=== PATIENT | female | born 1955 | race Caucasian/White ===

== ENCOUNTER 2017-07-28 14:01 | Emergency (ER) | payer BC ==
[~2017-07-28] VITALS: Ht 157.5 cm; Wt 81.8 kg
[2017-07-28 14:03] VITALS: BP 158/95
[2017-07-28] MEDS ORDERED: HYDROcodone/APAP 5/325 TABLET PO PRN (14:30)
[2017-07-28] MEDS ORDERED: HYDROcodone/APAP 5/325 TABLET ONE (14:51)
== END 2017-07-28 14:57 | disposition home or self-care (01) ==
LOC: ED 14:51
DX: S83.412A Sprain of medial collateral ligament of left knee, initial encounter (principal); G89.11 Acute pain due to trauma; X58.XXXA Exposure to other specified factors, initial encounter; Y93.89 Activity, other specified; Y92.89 Other specified places as the place of occurrence of the external cause; Y99.8 Other external cause status
CPT/HCPCS: 29505; 99284

== ENCOUNTER 2017-09-23 11:09 | Day surgery (SDC) | payer BC ==
[2017-09-21 11:11] VITALS: BP 107/68
[~2017-09-23] VITALS: Ht 154.9 cm; Wt 86.0 kg
[~2017-09-23 11:09] MED LIST: BIFI1CAP PO; BUPIVACAINE/PF 0.5% ONE; EPINEPHRINE 1 MG/ML, 1ML ONE; LIDOCAINE 1%, 50ML ONE; MULT-326 PO; MULT-672 PO
[2017-09-23] MEDS ORDERED: LACTATED RINGERS 1,000 ML IV SCH (12:26)
[2017-09-23] MEDS ORDERED: LIDOCAINE 1%, 2ML ONE (12:30)
[2017-09-23] MEDS ORDERED: LIDOCAINE 1%, 2ML SQ PRN (12:30)
[2017-09-23] MEDS ORDERED: MIDAZOLAM 1 MG/ML, 2ML ONE (12:55)
[2017-09-23] MEDS ORDERED: PROPOFOL 10 MG/ML, 20ML ONE (12:55)
[2017-09-23] MEDS ORDERED: ONDANSETRON 2MG/ML, 2ML ONE (12:55)
[2017-09-23] MEDS ORDERED: FENTANYL PF 250 MCG/5ML ONE (12:55)
[2017-09-23] MEDS ORDERED: CEFAZOLIN 1,000 MG ONE (12:55)
[2017-09-23] MEDS ORDERED: DEXAMETHASONE 4 MG/ML, 1ML ONE (12:55)
[2017-09-23] MEDS ORDERED: LIDOCAINE/PF 1%-EPI 1:200K, 30 ML ONE (13:40)
[2017-09-23] MEDS ORDERED: KETOROLAC 30 MG/1 ML ONE (13:49)
[2017-09-23] MEDS ORDERED: LABETALOL 5MG/ML, 20ML IV PRN (14:00)
[2017-09-23] MEDS ORDERED: METOCLOPRAMIDE 5 MG/ML, 2ML IV PRN (14:00)
[2017-09-23] MEDS ORDERED: FENTANYL PF 100 MCG/2ML IV PRN (14:00)
[2017-09-23] MEDS ORDERED: PROMETHAZINE 25 MG/ML, 1ML IV PRN (14:00)
[2017-09-23] MEDS ORDERED: hydrALAzine 20 MG/ML, 1ML IV PRN (14:00)
[2017-09-23] MEDS ORDERED: OXYcodone 5 MG/5 ML ORAL.SOL UDC PO PRN (14:00)
[2017-09-23] MEDS ORDERED: MIDAZOLAM 1 MG/ML, 2ML IV PRN (14:00)
[2017-09-23] MEDS ORDERED: ONDANSETRON 2MG/ML, 2ML IVPush PRN (14:00)
[2017-09-23] MEDS ORDERED: ALBUTEROL/IPRATROPIUM 2.5MG/0.5MG, 3 ML NPPB PRN (14:00)
[2017-09-23] MEDS ORDERED: DIAZEPAM 5 MG/ML, 2ML IVPush PRN (14:00)
[2017-09-23] MEDS ORDERED: ACETAMINOPHEN 325 MG TABLET PO PRN (14:00)
[2017-09-23] MEDS ORDERED: HYDROmorphone 1 MG/ML, 1ML IV PRN (14:00)
[2017-09-23] MEDS ORDERED: MEPERIDINE/PF 25MG/0.5ML IVPush PRN (14:00)
[2017-09-23] MEDS ORDERED: LIDOCAINE 1%-EPI 1:100K, 30ML INFIL ONE (14:06)
[2017-09-23] MEDS ORDERED: BUPIVACAINE/EPI 0.5% 1:200K INFIL ONE (14:07)
[2017-09-23] MEDS ORDERED: FENTANYL PF 100 MCG/2ML ONE (14:43)
[2017-09-23] MEDS ORDERED: OXYcodone 5 MG/5 ML ORAL.SOL UDC ONE (14:43)
[2017-09-23] MEDS ORDERED: ACETAMINOPHEN 650 MG/20.3 ML UDC ONE (14:43)
== END 2017-09-23 17:10 | disposition home or self-care (01) ==
LOC: OUT 11:09 → EDSTATUS 15:00 → OUT 17:10
PROVIDERS: ATTEND Orthopaedic Surgery
DX: S83.232A Complex tear of medial meniscus, current injury, left knee, initial encounter (principal); M94.262 Chondromalacia, left knee; S83.282A Other tear of lateral meniscus, current injury, left knee, initial encounter; X58.XXXA Exposure to other specified factors, initial encounter; Y93.89 Activity, other specified; Y92.89 Other specified places as the place of occurrence of the external cause; Y99.8 Other external cause status
CPT/HCPCS: 29880; 93005; J0171; J0690; J1100; J1885; J2250; J2405; J2704; J3010; J3490